=== PATIENT | female | born 1950 | race Caucasian/White ===

== ENCOUNTER 2016-12-20 09:45 | Emergency (ER) | payer OTHER ==
[~2016-12-20] VITALS: Ht 167.6 cm; Wt 65.0 kg
[~2016-12-20 09:45] MED LIST: ALENDRONATE SOD70 MG PO; AMBIEN5 MG PO; ATENOLOL100 MG PO; CENTRUM SILVER1 EAC3 PO; COLCRYS0.6 MG PO; IMODIUM MS REL1 EACH PO; LASIX40 MG PO; LITE COAT ASPI325 M1 PO; OMEPRAZOLE40 M1 PO; OXYCODONE-ACET1 EACH PO; PROAIR HFA8.5 GM IH; PROZAC20 MG PO; QVAR 80 MCG IN7.3 GM IH; SIMVASTATIN20 MG PO; TRAZODONE HCL100 MG PO; VITAMIN D32000 UNI1 PO
[2016-12-20 10:47] LABS: HEMATOCRIT 39.5 % (36.0-46.0); MCH 34.6 PG (29.0-34.0); MCHC 33.4 G/DL (30.0-36.0); MCV 103.7 FL (83-99); MEAN PLAT.VOLUME 10.8 uM^3 (9.5-12.4); RBC DIS.WIDTH-CV 14.5 % (11.8-14.6); RBC DIS.WIDTH-SD 55.6 % (39-53); RED BLOOD COUNT 3.81 M/uL (3.80-5.20); WHITE BLOOD COUNT 9.7 K/uL (4.1-10.2)
[2016-12-20 10:50] LABS: PLATELET COUNT 182 K/uL (156-360)
[2016-12-20 10:58] LABS: CHLORIDE 101 mEq/L (99-109); POTASSIUM 3.8 mEq/L (3.7-5.4); SODIUM 137 mEq/L (136-147)
[2016-12-20 10:59] LABS: GLUCOSE 135 mg/dL (70-99)
[2016-12-20 11:01] LABS: ANION GAP 13 MEQ/L (2-14)
[2016-12-20 11:03] LABS: GFR ESTIMATE (CALCULATED) > 59 mL/min/
[2016-12-20 11:04] LABS: UREA NITROGEN (BUN) 10 mg/dL (9-23)
[2016-12-20] MEDS ORDERED: LEVAQUIN750 MG PO (12:03)
[2016-12-20] MEDS ORDERED: VENTOLIN HFA18 GM IH (12:07)
[2016-12-20] MEDS ORDERED: PREDNISONE20 MG PO (12:07)
[2016-12-20 12:35] VITALS: BP 169/87
== END 2016-12-20 12:37 | disposition home or self-care (01) ==
LOC: EME 09:45
PROVIDERS: Physician Assistant
DX: J18.9 Pneumonia, unspecified organism (principal); J44.0 Chronic obstructive pulmonary disease with (acute) lower respiratory infection; F17.200 Nicotine dependence, unspecified, uncomplicated; I10 Essential (primary) hypertension; K21.9 Gastro-esophageal reflux disease without esophagitis
CPT/HCPCS: 71020; 80048; 85027; 94640; 94640 76; 99281; 99285; J2930; J7030

== ENCOUNTER → 2018-01-12 | Outpatient (CLI) | payer OTHER ==
[~2018-01-12] MED LIST changes: +LEVAQUIN750 MG PO; +PREDNISONE20 MG PO; +VENTOLIN HFA18 GM IH
== END | disposition home or self-care (01) ==
LOC: RAD 14:17
DX: I09.89 Other specified rheumatic heart diseases (principal)
CPT/HCPCS: 71046